=== PATIENT | female | born 1970 | race Caucasian/White ===

== ENCOUNTER 2020-07-09 16:34 | Emergency (ER) | payer OTHER ==
[~2020-07-09] VITALS: Ht 177.8 cm; Wt 79.4 kg
[~2020-07-09 16:34] MED LIST: IBUHYD PO
[2020-07-09] MEDS ORDERED: Robaxin-750750 MG PO (19:10)
[2020-07-09] MEDS ORDERED: Norco 5-325 Ta1 EACH PO (19:10)
== END 2020-07-09 19:25 | disposition home or self-care (01) ==
LOC: ER 16:34
DX: M54.6 Pain in thoracic spine (principal); F17.210 Nicotine dependence, cigarettes, uncomplicated
CPT/HCPCS: 72070; 99283-25

== ENCOUNTER 2020-07-29 09:45 | Emergency (ER) | payer OTHER ==
[~2020-07-29] VITALS: Ht 177.8 cm; Wt 81.7 kg
[~2020-07-29 09:45] MED LIST changes: +Norco 5-325 Ta1 EACH PO; +Robaxin-750750 MG PO
[2020-07-29] MEDS ORDERED: TRAM50 PO (09:57)
[2020-07-29] MEDS ORDERED: OXYACE7.5T PO (11:49)
[2020-07-29] MEDS ORDERED: METPRE4DP PO (11:49)
[2020-07-29] MEDS ORDERED: IBUP800 PO (11:49)
== END 2020-07-29 11:56 | disposition home or self-care (01) ==
LOC: ER 09:45
DX: M54.14 Radiculopathy, thoracic region (principal); F17.210 Nicotine dependence, cigarettes, uncomplicated; Z79.891 Long term (current) use of opiate analgesic
CPT/HCPCS: 96372-59; 99282-25; J1100; J1885; J2270

== ENCOUNTER 2020-08-11 13:42 | Emergency (ER) | payer OTHER ==
[~2020-08-11] VITALS: Ht 177.8 cm; Wt 79.4 kg
[~2020-08-11 13:42] MED LIST changes: +IBUP800 PO; +METPRE4DP PO; +OXYACE7.5T PO; +TRAM50 PO
[2020-08-11] MEDS ORDERED: HYDR1TAB94 PO (14:41)
== END 2020-08-11 15:27 | disposition home or self-care (01) ==
LOC: ER 13:42
DX: M54.5 Low back pain (principal); M54.6 Pain in thoracic spine; G89.29 Other chronic pain; F17.210 Nicotine dependence, cigarettes, uncomplicated
CPT/HCPCS: 96372-59; 99282-25; J1100; J1885; J2270

== ENCOUNTER 2020-09-06 17:44 | Emergency (ER) | payer OTHER ==
[~2020-09-06] VITALS: Ht 177.8 cm; Wt 79.4 kg
[~2020-09-06 17:44] MED LIST changes: +HYDR1TAB94 PO
[2020-09-06] MEDS ORDERED: OXYC10ER PO (18:26)
[2020-09-06 18:56] LABS: Source, Urine Clean Catch
[2020-09-06 19:02] LABS: Appearance, Urine Clear (Clear); Bilirubin, Urine Neg (Neg); Blood, Urine Neg (Neg); Color, Urine Yellow (P-Yellow); Glucose Qualitative, Urine Neg (Neg); Ketones, Urine Neg (Neg); Leukocyte Esterase, Urine Neg (Neg); Nitrite, Urine Neg (Neg); Protein, Urine Neg (Neg); Urobilinogen, Urine NORM (Normal)
[2020-09-06 19:11] LABS: BASOPHILS ABSOLUTE AUTO 0.03 K/mm3 (0.00-0.23); BASOPHILS PERCENT AUTO 1 % (0-2); EOSINOPHILS ABSOLUTE AUTO 0.29 K/mm3 (0.00-0.68); EOSINOPHILS PERCENT AUTO 4 % (0-6); Hematocrit 35.6 % (33.0-51.0); Hemoglobin 11.8 g/dL (11.5-16.0); IMMATURE GRAN ABSOLUTE AUTO 0.02 K/mm3 (0.00-0.10); IMMATURE GRAN PERCENT AUTO 0 % (0-1); LYMPHOCYTES PERCENT AUTO 28 % (21-46); MONOCYTES ABSOLUTE AUTO 0.58 K/mm3 (0.16-1.47); MONOCYTES PERCENT AUTO 9 % (4-13); Mean Corpuscular HGB 31.2 pg (26.0-34.0); Mean Corpuscular HGB Conc 33.1 g/dL (31.5-36.5); Mean Corpuscular Volume 94 fL (80-100); Mean Platelet Volume 9.4 fL (9.1-12.4); NEUTROPHILS ABSOLUTE AUTO 3.82 K/mm3 (1.96-9.15); NEUTROPHILS PERCENT AUTO 58 % (41-73); Platelet Count 201 K/mm3 (150-400); RDW Coefficient Variation 13.2 % (11.7-14.2); RDW Standard Deviation 45.7 fL (35.1-46.3); Red Blood Cell Count 3.78 M/mm3 (3.80-5.20); White Blood Cell Count 6.54 K/mm3 (4.00-11.30)
[2020-09-06 19:32] LABS: Alanine Aminotransfer (ALT/SGP 21 U/L (12-78); Albumin, Blood 3.1 g/dL (3.4-5.0); Albumin/Globulin Ratio 1.1 (0.8-1.8); Alk Phos 85 U/L (50-136); Anion Gap 7 mmol/L (6-16); Aspartate Aminotrans (AST/SGOT 8 U/L (12-37); Bilirubin, Total 0.3 mg/dL (0.1-1.0); Blood Urea Nitrogen 15 mg/dL (8-24); Bun/Creatinine Ratio 14.6 (12.0-20.0); CO2, Blood 22 mmol/L (21-32); Calcium, Blood 8.3 mg/dL (8.5-10.1); Chloride, Blood 112 mmol/L (98-108); Creatinine, Blood 1.03 mg/dL (0.40-1.00); Globulin, Blood 2.9 g/dL (2.2-4.0); Glomerular Filtration Rate >60 (60-); Glucose, Blood 80 mg/dL (70-99); Potassium, Blood 3.8 mmol/L (3.5-5.5); Sodium, Blood 141 mmol/L (136-145)
[2020-09-06] MEDS ORDERED: KETO10 PO (19:56)
[2020-09-06] MEDS ORDERED: Roxicodone5 MG PO (19:56)
[2020-09-06] MEDS ORDERED: ONDA4ODT MM (19:56)
== END 2020-09-06 20:15 | disposition home or self-care (01) ==
LOC: ER 17:44
PROVIDERS: Emergency Medicine
DX: C25.9 Malignant neoplasm of pancreas, unspecified (principal); C56.2 Malignant neoplasm of left ovary; C56.1 Malignant neoplasm of right ovary; C78.00 Secondary malignant neoplasm of unspecified lung; G89.29 Other chronic pain; F17.210 Nicotine dependence, cigarettes, uncomplicated; Z79.891 Long term (current) use of opiate analgesic
CPT/HCPCS: 36415; 80053; 81003; 83690; 85025; 96361; 96374; 96375; 96376; 99284-25; A9270; J1170; J1885; J2405; J7030